=== PATIENT | female | born 1935 | race Caucasian/White ===

== ENCOUNTER 2019-02-05 01:46 | Inpatient (IN) | payer MEDICARE, OTHER ==
[~2019-02-05] VITALS: Ht 157.5 cm; Wt 87.6 kg
[2019-02-05] MEDS ORDERED: morphine 4 MG/ML VIAL IV STA ×2 (01:51→02:47)
[2019-02-05] MEDS ORDERED: ONDANSETRON 4 MG INJ IV STA (01:51)
--- NOTE | 2019-02-05 02:37 | ERD ---
ER Documentation Chief Complaint Chief Complaint [id number],from home,slipped and fell, L hip pain HPI This 83-year-old female brought in by rescue from home with a slip and fall complains of left hip and left knee pain. Denies any fevers chills nausea vomiting. Pain is mild to moderate intensity no exacerbating alleviating factors. Denies any other current issues. ROS All systems reviewed and are negative except as per history of present illness. Allergies Allergies: Coded Allergies: No Known Allergy (Unverified , 02/05/19) PMhx/Soc History of Surgery: Yes (BILAT KNEE SX, ABDOMINAL SX) Anesthesia Reaction: No Hx Neurological Disorder: No Hx Respiratory Disorders: No Hx Cardiac Disorders: Yes (HTN) Hx Psychiatric Problems: No Hx Miscellaneous Medical Probl: No Hx Alcohol Use: No Hx Substance Use: No Hx Tobacco Use: No Smoking Status: Never smoker Physical Exam Vitals Vital Signs Date Temp Pulse Resp B/P (MAP) Pulse Ox O2 O2 Flow FiO2 Time Delivery Rate 02/05/19 97.3 66 19 122/75 98 01:54 (91) Physical Exam Const: No acute distress Head: Atraumatic Eyes: Normal Conjunctiva ENT: Normal External Ears, Nose and Mouth. Neck: Full range of motion. No meningismus. Resp: Clear to auscultation bilaterally Cardio: Regular rate and rhythm, no murmurs Abd: Soft, non tender, non distended. Normal bowel sounds Skin: No petechiae or rashes Back: No midline or flank tenderness Ext: No cyanosis, or edema Neur: Awake and alert Psych: Normal Mood and Affect Result Diagram: 02/05/19 0206 Results 24 hrs Laboratory Tests Test 02/05/19 02:06 White Blood Count 6.9 10^3/ul Red Blood Count 4.16 10^6/ul Hemoglobin 12.1 g/dl Hematocrit 38.8 % Mean Corpuscular Volume 93.3 fl Mean Corpuscular Hemoglobin 29.1 pg Mean Corpuscular Hemoglobin Concent 31.2 g/dl Red Cell Distribution Width 13.8 % Platelet Count 256 10^3/UL Mean Platelet Volume 9.5 fl Immature Granulocytes % 0.400 % Neutrophils % 64.0 % Lymphocytes % 23.7 % Monocytes % 7.8 % Eosinophils % 3.5 % Basophils % 0.6 % Nucleated Red Blood Cells % 0.0 /100WBC Immature Granulocytes # 0.030 10^3/ul Neutrophils # 4.4 10^3/ul Lymphocytes # 1.6 10^3/ul Monocytes # 0.5 10^3/ul Eosinophils # 0.2 10^3/ul Basophils # 0.0 10^3/ul Nucleated Red Blood Cells # 0.0 10^3/ul Prothrombin Time 12.4 Sec Prothrombin Time Ratio 1.0 INR International Normalized Ratio 0.91 Activated Partial Thromboplast Time 22.6 Sec Current Medications Medications Dose Sig/Astrid Start Time Status Last (Trade) Ordered Route PRN Stop Time Admin Dose Reason Admin Morphine 4 mg ONCE STAT 02/05/19 DC 02/05/19 Sulfate IV 01:51 02:04 (morphine) 02/05/19 01:52 Ondansetron 4 mg ONCE STAT 02/05/19 DC 02/05/19 HCl (Zofran IV 01:51 02:04 Inj) 02/05/19 01:52 Procedures/MDM X-ray Knee 3V Interpreted by me: Bones: Comminuted distal fibular fracture with multiple pieces Joints: [No dislocation] Foreign body: [None] X-ray Hip 2V Interpreted by me: Bones: [No fracture] Joints: [No dislocation] Foreign body: [None] Medical decision making: Patient has a essentially shattered distal femur. Patient will be admitted to hospitalist with orthopedic consultation. Departure Diagnosis: Primary Impression: Femur fracture Encounter type: initial encounter Femur location: unspecified portion of femur Fracture type: closed Fracture morphology: unspecified fracture morphology Laterality: left Qualified Codes: S72.92XA - Unspecified fra cture of left femur, initial encounter for closed fracture Condition: Serious ROXANA MCDONALD Feb 05, 2019 02:37
[2019-02-05] MEDS: SOD CHLORIDE 0.9% 1,000 ML IV SCH ×3 (02:58→23:16)
[2019-02-05] MEDS ORDERED: ONDANSETRON 4 MG INJ IV PRN ×2 (03:00)
[2019-02-05] MEDS ORDERED: NACL 0.9% 3 ML SYG IV SCH (03:00)
[2019-02-05] MEDS ORDERED: ACETAMINOPHEN 325 MG TAB PO PRN ×2 (03:00)
[2019-02-05] MEDS ORDERED: BISACODYL (EC) 5 MG TAB PO PRN (03:00)
[2019-02-05] MEDS ORDERED: DOCUSATE SODIUM 100 MG CAP PO PRN (03:00)
[2019-02-05] MEDS ORDERED: morphine 2 MG INJ IV PRN (03:00)
--- NOTE | 2019-02-05 03:50 | HP ---
Date/Time of Note Date/Time of Note DATE: 02/05/19 TIME: 03:41 Assessment/Plan VTE Prophylaxis SCD applied (from Nsg): Yes (Right lower extremity) Pharmacological prophylaxis: NA/contraindicated Pharm contraindication: low risk/ambulating Lines/Catheters IV Catheter Type (from Nrsg): Saline Lock Assessment/Plan Hospital Course This is a 80-year-old female being admitted to the [facility] floor for: #1 acute left femur fracture: Comminuted distal femoral periprosthetic fracture with approximately 2.5 cm of posterior medial displacement. Patient had knee replacements in 1998. We will keep patient n.p.o. except meds. IV fluid hydration with normal saline. Pain management. Given mechanism of injury as well as previous knee replacement hardware in place will also proceed with a CT of the pelvis as well as the lower extremity to further evaluate. Dr. Austin of orthopedic surgery has been consulted by the emergency department. Will await further recommendations. EKG and CXR ordered for preop. Cardiac consult for clearance dr. rios. #2 Left ankle pain: There is also concern for possible fracture. I will obtain a CT of the lower extremity to further evaluate as she was unable to have the x- rays performed given her pain. #3 diabetes mellitus we will check hemoglobin A 1C, insulin sliding scale q. the patient n.p.o., will need to confirm patient's home meds #4 hypertension: We will need to confirm patient's home medications and resume #5 hypothyroidism: Check TSH, will need to confirm patient's home levothyroxine dosing resume #6 DVT GI prophylaxis: Right lower extremity SCDs, no GI prophylaxis indicated Further treatment strategy will be implemented as per the clinical course Result Diagram: 02/05/19 0206 02/05/19 0206 Results 24hrs Laboratory Tests Test 02/05/19 02:06 White Blood Count 6.9 Red Blood Count 4.16 L Hemoglobin 12.1 Hematocrit 38.8 Mean Corpuscular Volume 93.3 Mean Corpuscular Hemoglobin 29.1 Mean Corpuscular Hemoglobin Concent 31.2 L Red Cell Distribution Width 13.8 Platelet Count 256 Mean Platelet Volume 9.5 Immature Granulocytes % 0.400 Neutrophils % 64.0 Lymphocytes % 23.7 Monocytes % 7.8 Eosinophils % 3.5 Basophils % 0.6 Nucleated Red Blood Cells % 0.0 Immature Granulocytes # 0.030 Neutrophils # 4.4 Lymphocytes # 1.6 Monocytes # 0.5 Eosinophils # 0.2 Basophils # 0.0 Nucleated Red Blood Cells # 0.0 Prothrombin Time 12.4 Prothrombin Time Ratio 1.0 INR International Normalized Ratio 0.91 Activated Partial Thromboplast Time 22.6 L Sodium Level 143 Potassium Level 4.5 Chloride Level 107 Carbon Dioxide Level 27 Anion Gap 9 Blood Urea Nitrogen 23 H Creatinine 1.04 H Est Glomerular Filtrat Rate mL/min Glucose Level 117 Calcium Level 9.7 Total Bilirubin 0.4 Direct Bilirubin 0.00 Indirect Bilirubin 0.4 Aspartate Amino Transf (AST/SGOT) 17 Alanine Aminotransferase (ALT/SGPT) 13 Alkaline Phosphatase 61 Total Protein 7.6 Albumin 4.1 Globulin 3.50 H Albumin/Globulin Ratio 1.17 Lipase 311 H HPI/ROS Admit Date/Time Admit Date/Time Hx of Present Illness Chief complaint: Fall, left leg pain this is a 83-year-old female with a past medical history of diabetes mellitus, hypertension, Breast CA and hypothyroidism who presents to the emergency department after she sustained a fall. She states that she was walking to the bathroom and she slipped on the floor. Part of the floor was carpeted and part of it was hard floor. She denies any loss of consciousness or syncope. Since falling her left lower extremity is really painful more so at the knee. Her family members present with her at the bedside and states that she has not really been moving the leg due to pain. She has a history of bilateral knee replacements in 1998 performed at [facility]. She denies any chest pain or shortness of breath. Patient is a independent female who is able to walk up and down stairs without any chest pain or shortness of breath. She has not had any previous issues with anesthesia in the past. Patient also reports of left ankle pain. Allergies: NKDA Medications: See OCT ROS Const: As per HPI Eyes : No pain discharge or redness or change in visual acuity ENT: No pain, sore throat, congestion, congestion, dysphagia or discharge Respiratory: No shortness of breath, cough, sputum, wheezing, or pleuritic pain Cardiovascular: No chest pain, palpitation, PND, or edema GI : no change in appetite, abdominal pain, nausea, vomiting, diarrhea, constipation, or change in the color his stool Genitourinary: No dysuria, hematuria, flank pain , discharge or CVA tenderness Musculoskeletal: As per HPI Skin: No rash, bruising or hives Neuro: No headache, dizziness, syncope, seizure, focal weakness Endocrine: No polyuria, polydipsia, temperature intolerance Psych: No hallucination, depression, anxiety or suicidal ideation PMH/Family/Social Past Medical History Diabetes mellitus, hypertension, breast cancer, hypothyroidism Medications Current Medications Sodium Chloride 1,000 ml @ 80 mls/hr [id number] IV Last administered on 02/05/19at 02:58; Admin Dose 80 MLS/HR; Start 02/05/19 at 02:41 IV Flush (NS 3 ml) 3 ml PER PROTOCOL IV ; Start 02/05/19 at 03:00 Ondansetron HCl (Zofran Inj) 4 mg Q6H PRN IV NAUSEA/VOMITING; Start 02/05/19 at 03:00 Acetaminophen (Tylenol Tab) 650 mg Q6H PRN PO .PAIN 1-3 OR TEMP; Start 02/05/19 at 03:00 Acetaminophen/ Hydrocodone Bitart ([place] (5/325)) 1 tab Q6H PRN PO .MOD PAIN 4- 6; Start 02/05/19 at 03:00 Docusate Sodium (Colace) 100 mg Q12H PRN PO .CONSTIPATION; Start 02/05/19 at 03:00 Bisacodyl (Dulcolax) 5 mg DAILY PRN PO .CONSTIPATION; Start 02/05/19 at 03:00 Hydromorphone HCl (Dilaudid) 1 mg Q4H PRN IV SEVERE PAIN LEVEL 7-10; Start 02/05/19 at 04:00; Status UNV Coded Allergies: No Known Allergy (Unverified , 02/05/19) Past Surgical History Left breast mastectomy, cholecystectomy, bladder surgery, Family History Significant Family History: no pertinent family hx Social History Alcohol Use: none Smoking Status: Never smoker Drug Use: none Exam/Review of Systems Vital Signs Vitals Vital Signs Date Temp Pulse Resp B/P (MAP) Pulse Ox O2 O2 Flow FiO2 Time Delivery Rate 02/05/19 97.3 66 19 122/75 98 01:54 (91) Exam Exam General: Patient is a pleasant female, currently lying in bed in moderate distress from pain HEENT: Atraumatic, normocephalic. The pupils are equal, round and reactive. Extraocular motor are intact Neck: Supple with full range of motion. No rigidity or meningismus Chest: Nontender Lungs: Clear to auscultation bilaterally no crackles rales or wheezing Heart: Normal S1-S2, Regular rhythm and rate. No murmur, S3, or S4 Abdomen: Soft , nontender, nondistended , bowel sounds are present. No guarding no rebound tenderness , No masses or organomegaly. No costovertebral temporal angle mass Extremities: left lower extremity is externally rotated, patient has tenderness palpation over the knee and the ankle. She denies pain at the hip. She has been not moving the extremity due to pain. Skin: Bilateral surgical scars of the knees Vascular: Neurovascularly intact, distal pulses 2+ bilaterally Neurologic: Normal mental status, speech normal, cranial nerves II through XII are intact, motor and sensory are intact, Additional Comments PROCEDURE: X-ray left knee. CLINICAL INDICATION: Pain. Fall. TECHNIQUE: VIEWS: 2 IMAGES: 2 COMPARISON: None. FINDINGS: OSSEOUS STRUCTURES Fractures: Total knee arthroplasty is present with comminuted periprosthetic fracture involving the distal femur. There is up to 2.5 cm of posteromedial displacement of the distal fragments/femoral condyles and prosthesis. SOFT TISSUES: Moderate atherosclerotic calcifications are present. IMPRESSION: 1. Comminuted distal femoral periprosthetic fracture with approximately 2.5 cm of posterior medial displacement. RPTAT:HGST Ricky Coelho Physician Date Time Electronically viewed and signed by Ricky Coelho, Physician on 02/05/2019 03:15 GT/ CC: ROXANA MCDONALD [id number] PROCEDURE: XR Hip Left 2 View (Routine) CLINICAL INDICATION: Pain. Fall. TECHNIQUE: VIEWS: 2 IMAGES: 2 COMPARISON: None. FINDINGS: OSSEOUS STRUCTURES Fractures: None. JOINTS: Spaces: Appear preserved. Mild osteitis pubis is suggested. IMPRESSION: 1. No acute osseous abnormalities. RPTAT:HGST Ricky Coelho, Physician Date Time Electronically viewed and signed by Ricky Coelho Physician on 02/05/2019 03:16 GT/ CC: ROXANA MCDONALD [id number] PROCEDURE: XR Chest. CLINICAL INDICATION: Preoperative assessment prior to general anesthesia. Left femur fracture. TECHNIQUE: Portable single view of the chest COMPARISON: None. FINDINGS: The lungs are free of focal infiltrate. Minimal into density adjacent the cardiac apex suggesting atelectasis or scarring. There is no pleural effusion or pneumothorax. Mild enlargement of cardiomediastinal silhouette, likely accentuated by portable AP technique, including mild cardiomegaly, ectasia and atherosclerotic calcification of the aorta. Surgical clips are seen overlying the left chest and axilla. The bones are demineralized with multilevel degenerative changes. No acute displaced fracture is seen. IMPRESSION: No definite acute process seen within the chest. Mild cardiomegaly. Ectasia and atherosclerotic calcification of the aorta. Postsurgical changes. RPTAT: HSAF Antolin Griffith, Physician Date Time Electronically viewed and signed by Antolin Griffith Physician on 02/05/2019 06:40 RF/ CC: SYLVIE ARMAS [id number] SYLVIE ARMAS Feb 05, 2019 03:50
[2019-02-05 04:00] VITALS: Ht 157.5 cm; Wt 87.6 kg
[2019-02-05 05:00] VITALS: BP 147/87; PULSE 65; RESP 20
[2019-02-05] MEDS ORDERED: INSULIN ASPART [NOVOLOG] 3 ML PEN SC SCH (05:00)
[2019-02-05] MEDS ORDERED: DEXTROSE 50% 50 ML SYRINGE IV PRN ×2 (05:00)
[2019-02-05] MEDS ORDERED: GLUCOSE GEL 15 GRAM TUBE PO PRN ×2 (05:00)
[2019-02-05] MEDS ORDERED: GLUCAGON 1 MG INJ IM PRN (05:00)
[2019-02-05] MEDS ORDERED: GLUCOSE GEL 15 GRAM TUBE BUCCAL PRN (05:00)
[2019-02-05] MEDS: HYDROmorphONE 1 MG/ML SYG IV PRN ×6 (05:17→23:15)
[2019-02-05] MEDS ORDERED: METF500T24 PO (06:02)
[2019-02-05] MEDS ORDERED: BRIM15DR2 BOTH EYES (06:02)
[2019-02-05] MEDS ORDERED: NATE60TA PO (06:02)
[2019-02-05] MEDS ORDERED: ESOM40CA PO (06:02)
[2019-02-05] MEDS ORDERED: OLME40TA13 PO (06:02)
[2019-02-05] MEDS ORDERED: LATA2.5D2 BOTH EYES (06:02)
[2019-02-05] MEDS ORDERED: FLUT1BLS3 IH (06:02)
[2019-02-05 07:21] VITALS: PULSE 76; RESP 18
[2019-02-05] MEDS: HYDROCODONE/APAP (5/325) TAB PO PRN ×4 (08:09→23:18)
[2019-02-05] MEDS: INSULIN ASPART [NOVOLOG] 3 ML PEN SC SCH ×4 (09:00→21:00)
--- NOTE | 2019-02-05 16:01 | RADRPT ---
Echocardiogram Report Patient Name: ROBERTO WHYTEPatient ID: [id number] : 1935 (83y 6m)Study Date: 02/05/2019 8:58:46 AM Gender: FAccession #: [id number] Tech: Niels Ricks [facility] Location: [address] Ref.Physician: SYLVIE ARMAS Height(Cm): BSA: Weight(Kg): Quality: AdequateOrder Physician: SYLVIE ARMAS Account #: Procedures: Echocardiographic Report: Transthoracic echocardiogram with complete 2D, M-Mode, and doppler examination. Indications: Pre-op. Measurements: 2D/M Mode Doppler Measurement Value Normal Range Measurement Value Normal Range LVIDd 2D 4.6 [ 3.8 - 5.2 ] cm AV Peak Wilbert 1.5 [ 100.0 - 170.0 ] cm/sec LVIDs 2D 3.2 [ 2.2 - 3.5 ] cm AV Peak PG 9.0 [ 2.0 - 9.0 ] mmHg LVPWd 2D 1.0 [ 0.6 - 0.9 ] cm LVOT Peak Wilbert 1.1 [ 70.0 - 110.0 ] cm/sec IVSd 2D 1.2 [ 0.6 - 0.9 ] cm LVOT Peak PG 4.0 [ 2.0 - 6.0 ] mmHg AoR Diam 2D 2.7 [ 2.3 - 3.1 ] cm MV E Peak Wilbert 0.5 [ 60.0 - 130.0 ] cm/sec EDV 2D 94.9 [ 46.0 - 106.0 ] ml MV A Peak Wilbert 0.8 [ 100.0 - 120.0 ] cm/sec ESV 2D 40.6 [ 14.0 - 42.0 ] ml MV E/A 0.7 [ 0.8 - 1.5 ] ratio EF 2D 57.2 [ 54.0 - 74.0 ] percent MV Decel Time 243 [ 104 - 258 ] msec LA Dimen 2D 2.9 [ 2.7 - 3.8 ] cm Lat E` Wilbert 0.1 [ 10.0 - 15.0 ] cm/sec Lateral E/E` 8.1 [ 1.0 - 2.0 ] ratio Med E` Wilbert 0.1 cm/sec MV E/A 0.7 [ 0.8 - 1.5 ] ratio RA Pressure 10.0 mmHg Findings: Left Ventricle: Overall, normal left ventricular systolic function. Not all segments visualized. Normal left ventricular cavity size. Left ventricle not well visualized. Sigmoid septum. Ejection fraction is visually estimated at 65 %. Tissue Doppler/Mitral Doppler indices are consistent with impaired relaxation (Stage I diastolic dysfunction). Right Ventricle: Normal right ventricular size. Normal right ventricular systolic function. Left Atrium: The left atrium is normal in size. Right Atrium: The right atrium is normal in size. Mitral Valve: Mild mitral leaflet calcification. Mild mitral annular calcification. Aortic Valve: No significant aortic stenosis or insufficiency. Aortic valve not well visualized. Aortic cusps appear mildly calcified. Tricuspid Valve: Normal appearance of the tricuspid valve. Unable to obtain RVSP due to minimal presence of tricuspid regurgitation. Pericardium: Normal pericardium with no significant pericardial effusion. Left pleural effusion seen. Aorta: Normal aortic root. IVC: Normal size and normal respiratory collapse consistent with normal right atrial pressure. Conclusions: Overall, normal left ventricular systolic function. Not all segments visualized. Normal left ventricular cavity size. Left ventricle not well visualized. Sigmoid septum. Ejection fraction is visually estimated at 65 %. Tissue Doppler/Mitral Doppler indices are consistent with impaired relaxation (Stage I diastolic dysfunction). Mild mitral leaflet calcification. Mild mitral annular calcification. No significant aortic stenosis or insufficiency. Aortic valve not well visualized. Aortic cusps appear mildly calcified. Normal appearance of the tricuspid valve. Unable to obtain RVSP due to minimal presence of tricuspid regurgitation. Electronically Signed By: Louie Queen 2019-02-05 16:01:19 PDT
--- NOTE | 2019-02-05 16:10 | PN ---
Date/Time of Note Date/Time of Note DATE: 02/05/19 TIME: 16:04 Assessment/Plan VTE Prophylaxis Risk score (from Ns)>0 risk: 8 SCD applied (from Ns): Yes Pharmacological prophylaxis: NA/contraindicated Pharm contraindication: surgical contra Lines/Catheters IV Catheter Type (from Nrsg): Peripheral IV Urinary Cath still in place: No Assessment/Plan Hospital Course 1. Acute left distal femur fracture as well as ankle fracture secondary to fall CT of the lower extremity shows Comminuted and displaced distal femoral periprosthetic fracture, as seen on earlier radiographs, with associated soft tissue swelling including inferiorly within the posterior compartment. Trimalleolar ankle fracture without associated dislocation. Nondisplaced fracture of the first proximal phalanx which extends to the MTP joint. Pain control Ortho consult with Dr. Austin obtained Cardiology consultation for preop evaluation 2. History of left knee replacement 3. Diabetes mellitus we will check hemoglobin A 1C, insulin sliding scale q. the patient n.p.o., will need to confirm patient's home meds 4. Hypertension Hold home meds secondary to low to normal blood pressure 5. Hypothyroidism: Check TSH, will need to confirm patient's home levothyroxine dosing resume 6. Morbid obesity Lifestyle changes DVT GI prophylaxis: Right lower extremity SCDs, no GI prophylaxis indicated Result Diagram: 02/05/19 0550 02/05/19 0550 Results 24hrs Laboratory Tests Test 02/05/19 02:06 02/05/19 05:50 02/05/19 09:25 02/05/19 13:15 White Blood Count 6.9 10.5 # Red Blood Count 4.16 L 3.75 L Hemoglobin 12.1 11.0 L Hematocrit 38.8 34.9 L Mean Corpuscular 93.3 93.1 Volume Mean Corpuscular 29.1 29.3 Hemoglobin Mean Corpuscular 31.2 L 31.5 L Hemoglobin Concent Red Cell 13.8 13.6 Distribution Width Platelet Count 256 231 Mean Platelet Volume 9.5 10.0 Immature 0.400 0.400 Granulocytes % Neutrophils % 64.0 79.5 H Lymphocytes % 23.7 11.9 L Monocytes % 7.8 6.4 Eosinophils % 3.5 1.5 Basophils % 0.6 0.3 Nucleated Red Blood 0.0 0.0 Cells % Immature 0.030 0.040 H Granulocytes # Neutrophils # 4.4 8.3 H Lymphocytes # 1.6 1.2 Monocytes # 0.5 0.7 Eosinophils # 0.2 0.2 Basophils # 0.0 0.0 Nucleated Red Blood 0.0 0.0 Cells # Prothrombin Time 12.4 Prothrombin Time 1.0 Ratio INR International 0.91 Normalized Ratio Activated 22.6 L Partial Thromboplast Time Sodium Level 143 140 Potassium Level 4.5 4.8 Chloride Level 107 107 Carbon Dioxide Level 27 25 Anion Gap 9 8 Blood Urea Nitrogen 23 H 22 H Creatinine 1.04 H 0.98 Est Glomerular Filtrat Rate mL/min Glucose Level 117 124 Calcium Level 9.7 9.4 Total Bilirubin 0.4 0.4 Direct Bilirubin 0.00 0.00 Indirect Bilirubin 0.4 0.4 Aspartate Amino 17 18 Transf (AST/SGOT) Alanine 13 11 L Aminotransferase (AL T/SGPT) Alkaline Phosphatase 61 56 Total Protein 7.6 6.7 Albumin 4.1 3.8 Globulin 3.50 H 2.90 Albumin/Globulin 1.17 1.31 Ratio Lipase 311 H Bedside Glucose 117 94 Subjective 24 Hr Interval Summary Musculoskeletal: bone/joint pain Exam/Review of Systems Exam Vitals Vital Signs Date Temp Pulse Resp B/P (MAP) Pulse Ox O2 O2 Flow FiO2 Time Delivery Rate 02/05/19 98.9 76 18 94 Room Air 07:21 Intake and Output 02/04/19 02/04/19 02/05/19 1515:00 23:00 07:00 IntakeIntake Total 320 ml OutputOutput Total 150 ml BalanceBalance 170 ml Constitutional: alert, oriented Respiratory: clear to auscultation Cardiovascular: regular rate and rhythm Gastrointestinal: soft; No distended Musculoskeletal: nl extremities to inspection Results Results 24hrs Laboratory Tests Test 02/05/19 02:06 02/05/19 05:50 02/05/19 09:25 02/05/19 13:15 White Blood Count 6.9 10.5 # Red Blood Count 4.16 L 3.75 L Hemoglobin 12.1 11.0 L Hematocrit 38.8 34.9 L Mean Corpuscular 93.3 93.1 Volume Mean Corpuscular 29.1 29.3 Hemoglobin Mean Corpuscular 31.2 L 31.5 L Hemoglobin Concent Red Cell 13.8 13.6 Distribution Width Platelet Count 256 231 Mean Platelet Volume 9.5 10.0 Immature 0.400 0.400 Granulocytes % Neutrophils % 64.0 79.5 H Lymphocytes % 23.7 11.9 L Monocytes % 7.8 6.4 Eosinophils % 3.5 1.5 Basophils % 0.6 0.3 Nucleated Red Blood 0.0 0.0 Cells % Immature 0.030 0.040 H Granulocytes # Neutrophils # 4.4 8.3 H Lymphocytes # 1.6 1.2 Monocytes # 0.5 0.7 Eosinophils # 0.2 0.2 Basophils # 0.0 0.0 Nucleated Red Blood 0.0 0.0 Cells # Prothrombin Time 12.4 Prothrombin Time 1.0 Ratio INR International 0.91 Normalized Ratio Activated 22.6 L Partial Thromboplast Time Sodium Level 143 140 Potassium Level 4.5 4.8 Chloride Level 107 107 Carbon Dioxide Level 27 25 Anion Gap 9 8 Blood Urea Nitrogen 23 H 22 H Creatinine 1.04 H 0.98 Est Glomerular Filtrat Rate mL/min Glucose Level 117 124 Calcium Level 9.7 9.4 Total Bilirubin 0.4 0.4 Direct Bilirubin 0.00 0.00 Indirect Bilirubin 0.4 0.4 Aspartate Amino 17 18 Transf (AST/SGOT) Alanine 13 11 L Aminotransferase (AL T/SGPT) Alkaline Phosphatase 61 56 Total Protein 7.6 6.7 Albumin 4.1 3.8 Globulin 3.50 H 2.90 Albumin/Globulin 1.17 1.31 Ratio Lipase 311 H Bedside Glucose 117 94 Medications Medication Current Medications Sodium Chloride 1,000 ml @ 80 mls/hr [id number] IV Last administered on 02/05/19at 13:13; Admin Dose 80 MLS/HR; Start 02/05/19 at 02:41 IV Flush (NS 3 ml) 3 ml PER PROTOCOL IV ; Start 02/05/19 at 03:00 Ondansetron HCl (Zofran Inj) 4 mg Q6H PRN IV NAUSEA/VOMITING; Start 02/05/19 at 03:00 Acetaminophen (Tylenol Tab) 650 mg Q6H PRN PO .PAIN 1-3 OR TEMP; Start 02/05/19 at 03:00 Acetaminophen/ Hydrocodone Bitart ([place] (5/325)) 1 tab Q6H PRN PO .MOD PAIN 4- 6 Last administered on 02/05/19at 15:02; Admin Dose 1 TAB; Start 02/05/19 at 03:00 Docusate Sodium (Colace) 100 mg Q12H PRN PO .CONSTIPATION; Start 02/05/19 at 03:00 Bisacodyl (Dulcolax) 5 mg DAILY PRN PO .CONSTIPATION; Start 02/05/19 at 03:00 Hydromorphone HCl (Dilaudid) 1 mg Q4H PRN IV SEVERE PAIN LEVEL 7-10 Last administered on 02/05/19at 13:13; Admin Dose 1 MG; Start 02/05/19 at 04:00 Miscellaneous Information 1 ea NOTE XX ; Start 02/05/19 at 05:00 Glucose (Glutose) 15 gm Q15M PRN PO DECREASED GLUCOSE; Start 02/05/19 at 05:00 Glucose (Glutose) 22.5 gm Q15M PRN PO DECREASED GLUCOSE; Start 02/05/19 at 05:00 Dextrose (D50w Syringe) 25 ml Q15M PRN IV DECREASED GLUCOSE; Start 02/05/19 at 05:00 Dextrose (D50w Syringe) 50 ml Q15M PRN IV DECREASED GLUCOSE; Start 02/05/19 at 05:00 Glucagon (Glucagen) 1 mg Q15M PRN IM DECREASED GLUCOSE; Start 02/05/19 at 05:00 Glucose (Glutose) 15 gm Q15M PRN BUCCAL DECREASED GLUCOSE; Start 02/05/19 at 0 5:00 Diagnostic Test (Pha) (Accu-Chek) 1 ea 02 XX ; Start 02/06/19 at 02:00 Insulin Aspart (Novolog Insulin Pen) NOVOLOG *MILD* ALGORITHM WITH MEALS BEDTIME SC ; Start 02/05/19 at 17:55 KATELYN CALDWELL Feb 05, 2019 16:10
--- NOTE | 2019-02-05 16:24 | CONS ---
Assessment/Plan Assessment/Plan Hospital Course (Demo Recall) 1. Cardiovascular preop evaluation 2. Diabetes B. Femoral fraction 4. Hypertension 5. History of osteoarthritis Recommendations: Diabetic management as per internal medicine Blood pressure currently remains stable Patient is currently optimized from the cardiac extent with no anginal symptoms and no further cardiac work-up would be indicated. Given her multiple risk factors including diabetes and advanced and she will be a small to moderate risk of cardiovascular event for the proposed procedure however Thank you for this referral. We will continue to follow along with you PUMA THOMPSON MD [facility] Consultation Date/Type/Reason Admit Date/Time Date of Consultation: Feb 05, 2019 Type of Consult Cardiology Reason for Consultation CV PREOP Requesting Provider: SYLVIE ARMAS Date/Time of Note DATE: 02/05/19 TIME: 16:18 Hx of Present Illness Interventional cardiology consultation note Chief complaint: Status post fall. Left hip and leg pain Reason for consult: Cardiovascular preop evaluation History of present illness: Thank you for this referral. History was obtained from the patient discussion with her daughter review of the chart discussion with the staff and physicians. This is a pleasant 83-year-old female with history of diabetes hypertension who presented to emergency room after a fall. Patient stated she did not pass out. She slipped and she fell and apparently has had femoral fraction and is being evaluated by orthopedic surgery for hip surgery. I was kindly asked to evaluate and optimize prior to the proposed surgery. Patient and the daughter deny any history of cardiac disorders. Patient denies any history of chest pain or pressure. According to the patient and the daughter she is normally able to walk more than 2 blocks but she walks slowly and has no anginal chest pain when she walks. She denies any PND orthopnea to me. She denies letter chest pain or pressure to me. She denies any history of previous cardiac or anesthesia complication with her previous surgery Allergies: No known drug allergies Medications were reviewed as per medical reconciliation sheet Family history: Patient has a brother with coronary arteries and [place] in his 50s Social history: Does not smoke or drink Past medical history: Diabetes hypertension dyslipidemia osteoarthritis. Status post knee surgery in 1998 Review of system: Patient denies all others except for above-mentioned Past Medical History Home Meds Reported Medications Metformin Hcl* (Metformin Hcl*) 500 Mg Tablet, 500 MG PO WITH BREAKFAST DINNE, #60 TAB 02/05/19 Esomeprazole Mag Trihydrate (Nexium) 40 Mg Capsule.dr, 40 MG PO DAILY, #30 CAP 02/05/19 Nateglinide* (Nateglinide*) 60 Mg Tablet, 60 MG PO AC MEALS, TAB 02/05/19 Olmesartan Medoxomil (Benicar) 40 Mg Tablet, 40 MG PO DAILY, #30 TAB 02/05/19 Fluticasone/Umeclidin/Vilanter (Trelegy Ellipta 100-62.5-25) 1 Each Blst.w.dev, 1 EACH IH 02/05/19 Latanoprost (Latanoprost) 2.5 Ml Drops, 1 DROP BOTH EYES QHS, #1 BOTTLE 02/05/19 Brimonidine Tartrate* (Alphagan P*) 0.1%-15 Ml Opht Drops, 1 DROP BOTH EYES Q8, #1 EA 02/05/19 Medications Current Medications Sodium Chloride 1,000 ml @ 80 mls/hr [id number] IV Last administered on 02/05/19at 13:13; Admin Dose 80 MLS/HR; Start 02/05/19 at 02:41 IV Flush (NS 3 ml) 3 ml PER PROTOCOL IV ; Start 02/05/19 at 03:00 Ondansetron HCl (Zofran Inj) 4 mg Q6H PRN IV NAUSEA/VOMITING; Start 02/05/19 at 03:00 Acetaminophen (Tylenol Tab) 650 mg Q6H PRN PO .PAIN 1-3 OR TEMP; Start 02/05/19 at 03:00 Acetaminophen/ Hydrocodone Bitart ([place] (5/325)) 1 tab Q6H PRN PO .MOD PAIN 4- 6 Last administered on 02/05/19at 15:02; Admin Dose 1 TAB; Start 02/05/19 at 03:00 Docusate Sodium (Colace) 100 mg Q12H PRN PO .CONSTIPATION; Start 02/05/19 at 03:00 Bisacodyl (Dulcolax) 5 mg DAILY PRN PO .CONSTIPATION; Start 02/05/19 at 03:00 Hydromorphone HCl (Dilaudid) 1 mg Q4H PRN IV SEVERE PAIN LEVEL 7-10 Last administered on 02/05/19at 13:13; Admin Dose 1 MG; Start 02/05/19 at 04:00 Miscellaneous Information 1 ea NOTE XX ; Start 02/05/19 at 05:00 Glucose (Glutose) 15 gm Q15M PRN PO DECREASED GLUCOSE; Start 02/05/19 at 05:00 Glucose (Glutose) 22.5 gm Q15M PRN PO DECREASED GLUCOSE; Start 02/05/19 at 05:00 Dextrose (D50w Syringe) 25 ml Q15M PRN IV DECREASED GLUCOSE; Start 02/05/19 at 05:00 Dextrose (D50w Syringe) 50 ml Q15M PRN IV DECREASED GLUCOSE; Start 02/05/19 at 05:00 Glucagon (Glucagen) 1 mg Q15M PRN IM DECREASED GLUCOSE; Start 02/05/19 at 05:00 Glucose (Glutose) 15 gm Q15M PRN BUCCAL DECREASED GLUCOSE; Start 02/05/19 at 05:00 Diagnostic Test (Pha) (Accu-Chek) 1 ea 02 XX ; Start 02/06/19 at 02:00 Insulin Aspart (Novolog Insulin Pen) NOVOLOG *MILD* ALGORITHM WITH MEALS BEDTIME SC ; Start 02/05/19 at 17:55 Allergies: Coded Allergies: No Known Allergy (Unverified , 02/05/19) Social History Alcohol Use: none Smoking Status: Never smoker Drug Use: none Exam/Review of Systems Vital Signs Vitals Vital Signs Date Temp Pulse Resp B/P (MAP) Pulse Ox O2 O2 Flow FiO2 Time Delivery Rate 02/05/19 98.9 76 18 94 Room Air 07:21 Intake and Output 02/04/19 02/04/19 02/05/19 1515:00 23:00 07:00 IntakeIntake Total 320 ml OutputOutput Total 150 ml BalanceBalance 170 ml Exam Exam General: no acute distress HEENT: NC/AT. pupils are equal. round. NECK: NO JVD. no stridor. CV: RRR. systolic murmur; no gallop or rubs. PULM: no wheezing or rhonchi. GI: SOFT, NT, ND, no rebound or guarding Extremity: trace B/L LE edema. no clubbing. neuro: awake and alert, OX3. Psych: calm and pleasant rectal: deferred ECG NSR LAD ECHO reviewed Overall, normal left ventricular systolic function. Not all segments visualized. Normal left ventricular cavity size. Left ventricle not well visualized. Sigmoid septum. Ejection fraction is visually estimated at 65 %. Tissue Doppler/Mitral Doppler indices are consistent with impaired relaxation (Stage I diastolic dysfunction). Mild mitral leaflet calcification. Mild mitral annular calcification. No significant aortic stenosis or insufficiency. Aortic valve not well visualized. Aortic cusps appear mildly calcified. Normal appearance of the tricuspid valve. Unable to obtain RVSP due to minimal presence of tricuspid regurgitation. CXR No definite acute process seen within the chest. Mild cardiomegaly. Ectasia and atherosclerotic calcification of the aorta. Postsurgical change CT shows: Comminuted and displaced distal femoral periprosthetic fracture, as seen on earlier radiographs, with associated soft tissue swelling including inferiorly w ithin the posterior compartment. Trimalleolar ankle fracture without associated dislocation. Dedicated radiographs could be obtained for further assessment as clinically warranted. Nondisplaced fracture of the first proximal phalanx which extends to the MTP joint. Underlying osteopenia, and degenerative changes. Multifocal atherosclerotic calcifications. Labs Result Diagram: 02/05/19 0550 02/05/19 0550 Results 24hrs Laboratory Tests Test 02/05/19 02:06 02/05/19 05:50 02/05/19 09:25 02/05/19 13:15 White Blood Count 6.9 10.5 # Red Blood Count 4.16 L 3.75 L Hemoglobin 12.1 11.0 L Hematocrit 38.8 34.9 L Mean Corpuscular 93.3 93.1 Volume Mean Corpuscular 29.1 29.3 Hemoglobin Mean Corpuscular 31.2 L 31.5 L Hemoglobin Concent Red Cell 13.8 13.6 Distribution Width Platelet Count 256 231 Mean Platelet Volume 9.5 10.0 Immature 0.400 0.400 Granulocytes % Neutrophils % 64.0 79.5 H Lymphocytes % 23.7 11.9 L Monocytes % 7.8 6.4 Eosinophils % 3.5 1.5 Basophils % 0.6 0.3 Nucleated Red Blood 0.0 0.0 Cells % Immature 0.030 0.040 H Granulocytes # Neutrophils # 4.4 8.3 H Lymphocytes # 1.6 1.2 Monocytes # 0.5 0.7 Eosinophils # 0.2 0.2 Basophils # 0.0 0.0 Nucleated Red Blood 0.0 0.0 Cells # Prothrombin Time 12.4 Prothrombin Time 1.0 Ratio INR International 0.91 Normalized Ratio Activated 22.6 L Partial Thromboplast Time Sodium Level 143 140 Potassium Level 4.5 4.8 Chloride Level 107 107 Carbon Dioxide Level 27 25 Anion Gap 9 8 Blood Urea Nitrogen 23 H 22 H Creatinine 1.04 H 0.98 Est Glomerular Filtrat Rate mL/min Glucose Level 117 124 Calcium Level 9.7 9.4 Total Bilirubin 0.4 0.4 Direct Bilirubin 0.00 0.00 Indirect Bilirubin 0.4 0.4 Aspartate Amino 17 18 Transf (AST/SGOT) Alanine 13 11 L Aminotransferase (AL T/SGPT) Alkaline Phosphatase 61 56 Total Protein 7.6 6.7 Albumin 4.1 3.8 Globulin 3.50 H 2.90 Albumin/Globulin 1.17 1.31 Ratio Lipase 311 H Bedside Glucose 117 94 Medications Medications Current Medications Sodium Chloride 1,000 ml @ 80 mls/hr [id number] IV Last administered on 02/05/19at 13:13; Admin Dose 80 MLS/HR; Start 02/05/19 at 02:41 IV Flush (NS 3 ml) 3 ml PER PROTOCOL IV ; Start 02/05/19 at 03:00 Ondansetron HCl (Zofran Inj) 4 mg Q6H PRN IV NAUSEA/VOMITING; Start 02/05/19 at 03:00 Acetaminophen (Tylenol Tab) 650 mg Q6H PRN PO .PAIN 1-3 OR TEMP; Start 02/05/19 at 03:00 Acetaminophen/ Hydrocodone Bitart ([place] (5/325)) 1 tab Q6H PRN PO .MOD PAIN 4- 6 Last administered on 02/05/19at 15:02; Admin Dose 1 TAB; Start 02/05/19 at 03:00 Docusate Sodium (Colace) 100 mg Q12H PRN PO .CONSTIPATION; Start 02/05/19 at 03:00 Bisacodyl (Dulcolax) 5 mg DAILY PRN PO .CONSTIPATION; Start 02/05/19 at 03:00 Hydromorphone HCl (Dilaudid) 1 mg Q4H PRN IV SEVERE PAIN LEVEL 7-10 Last administered on 02/05/19at 13:13; Admin Dose 1 MG; Start 02/05/19 at 04:00 Miscellaneous Information 1 ea NOTE XX ; Start 02/05/19 at 05:00 Glucose (Glutose) 15 gm Q15M PRN PO DECREASED GLUCOSE; Start 02/05/19 at 05:00 Glucose (Glutose) 22.5 gm Q15M PRN PO DECREASED GLUCOSE; Start 02/05/19 at 05:00 Dextrose (D50w Syringe) 25 ml Q15M PRN IV DECREASED GLUCOSE; Start 02/05/19 at 05:00 Dextrose (D50w Syringe) 50 ml Q15M PRN IV DECREASED GLUCOSE; Start 02/05/19 at 05:00 Glucagon (Glucagen) 1 mg Q15M PRN IM DECREASED GLUCOSE; Start 02/05/19 at 05:00 Glucose (Glutose) 15 gm Q15M PRN BUCCAL DECREASED GLUCOSE; Start 02/05/19 at 05:00 Diagnostic Test (Pha) (Accu-Chek) 1 ea 02 XX ; Start 02/06/19 at 02:00 Insulin Aspart (Novolog Insulin Pen) NOVOLOG *MILD* ALGORITHM WITH MEALS BEDTIME SC ; Start 02/05/19 at 17:55 PUMA THOMPSON MD Feb 05, 2019 16:24
[2019-02-05 20:00] VITALS: BP 140/70; PULSE 79; RESP 18
[2019-02-05] MEDS ORDERED: LORAZEPAM 2 MG INJ IV PRN (21:30)
--- NOTE | 2019-02-06 00:03 | QN ---
Documentation Comment Patient was seen and examined by orthopedic surgery Dr. Austin. Due to the complexity of the patient's periprosthetic fracture, the surgeon recommended that the patient would be transferred to a higher level of care for treatment. Please see Dr. Austin's note for further details. I did speak with the patient's PCP Dr.Siamak Tao regarding the patient's case. He graciously agreed to accept the patient under his care at [facility]. He stated that she would be appropriate for transfer in the a.m. I have contacted the nursing supervisor [employer] as well as the gearcase assembler to help coordinate transfer to higher level of care. SYLVIE ARMAS Feb 06, 2019 00:02
[2019-02-06] MEDS ORDERED: ACCU-CHEK XX SCH (02:00)
[2019-02-06] MEDS: ACCU-CHEK XX SCH (02:00)
[2019-02-06] MEDS: HYDROmorphONE 1 MG/ML SYG IV PRN ×2 (03:40→07:07)
[2019-02-06] MEDS: INSULIN ASPART [NOVOLOG] 3 ML PEN SC SCH ×4 (07:50→20:16)
--- NOTE | 2019-02-06 08:09 | CONS ---
DATE OF ADMISSION: 02/05/2019 DATE OF CONSULTATION: 02/05/2019 HISTORY OF PRESENT ILLNESS: The patient is an 83-year-old female who was admitted through the emerge ncy room on 02/05/2019, when she came to the emergency room complaining of painful swelling and defor mity and limit of motion involving her left knee. She was at home. She is usually ambulatory and sh e was walking at home when she slipped and fell, twisting her left lower extremity. Following the fa ll, she was not able to stand up or walk because of the severe pain and deformity involving her left knee. 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 She wanted to be transferred because her doctors, including primary care physician, are mainly in the [facility], which is a major trauma center; however, because of some administrative difficu lties, she was admitted to this facility. PHYSICAL EXAMINATION: My examination revealed an 83-year-old female with obvious extensive swelling and some valgus malalignment involving the left knee. Range of motion of the left knee cannot be bobo celia because of the obvious pain and discomfort. There were no signs of acute neurovascular compromis e involving the left lower extremity. IMAGING STUDIES: X-rays of the left knee revealed a periprosthetic fracture involving the distal end of the left femur. In addition, there are signs of loosening of the tibial component. PLAN: Because of the nature of the fractures, which is involving the junction between the distal fem ur and femoral component and because of the findings suggestive of tibial component loosening, she wi ll probably need revision total knee replacement of the right knee. She will probably need a transfe r to a major medical center where the orthopedic surgeon who is specializing in total joint replaceme nt is willing and able to carry out the revision total knee replacement. Dictated By: SALVADOR BUNCH MD IK/NTS Conf#: [id number] DID#: [id number] CC: SYLVIE ARMAS MD;*EndCC*
--- NOTE | 2019-02-06 08:27 | CONS ---
Consult Date/Type/Reason Admit Date/Time Feb 05, 2019 at 02:38 Initial Consult Date 02/05/19 Type of Consultation: cv Requesting Provider: SYLVIE ARMAS Date/Time of Note DATE: 02/06/19 TIME: 08:26 Subjective Interventional cardiology follow-up progress note Subjective Discussed with the staff discussed with patient daughter. Patient with no chest pain or pressure no palpitation She is still complains of severe left-sided leg pain. Ejective: General: Appears to be in pain. HEENT: NC/AT. pupils are equal. round. NECK: NO JVD. no stridor. CV: RRR. systolic murmur; no gallop or rubs. PULM: no wheezing or rhonchi. GI: SOFT, NT, ND, no rebound or guarding Extremity: trace B/L LE edema. no clubbing. neuro: awake and alert, OX3. Psych: calm and pleasant rectal: deferred ECG NSR LAD ECHO reviewed Overall, normal left ventricular systolic function. Not all segments visualized. Normal left ventricular cavity size. Left ventricle not well visualized. Sigmoid septum. Ejection fraction is visually estimated at 65 %. Tissue Doppler/Mitral Doppler indices are consistent with impaired relaxation (Stage I diastolic dysfunction). Mild mitral leaflet calcification. Mild mitral annular calcification. No significant aortic stenosis or insufficiency. Aortic valve not well visualized. Aortic cusps appear mildly calcified. Normal appearance of the tricuspid valve. Unable to obtain RVSP due to minimal presence of tricuspid regurgitation. CXR No definite acute process seen within the chest. Mild cardiomegaly. Ectasia and atherosclerotic calcification of the aorta. Postsurgical change CT shows: Comminuted and displaced distal femoral periprosthetic fracture, as seen on earlier radiographs, with associated soft tissue swelling including inferiorly within the posterior compartment. Trimalleolar ankle fracture without associated dislocation. Dedicated radiographs could be obtained for further assessment as clinically warranted. Nondisplaced fracture of the first proximal phalanx which extends to the MTP joint. Underlying osteopenia, and degenerative changes. Multifocal atherosclerotic calcifications. Objective Vitals Vital Signs Date Temp Pulse Resp B/P (MAP) Pulse Ox O2 O2 Flow FiO2 Time Delivery Rate 02/05/19 98.5 79 18 140/70 94 Room Air 20:00 (93) Intake and Output 02/05/19 02/05/19 02/06/19 1515:00 23:00 07:00 IntakeIntake Total 680 ml 320 ml 1760 ml BalanceBalance 680 ml 320 ml 1760 ml Results/Medications Result Diagram: 02/06/19 0439 02/06/19 0439 Results 24 hrs Laboratory Tests Test 02/05/19 09:25 02/05/19 13:15 02/05/19 17:38 02/05/19 20:05 Bedside Glucose 117 94 116 92 Test 02/06/19 04:39 White Blood Count 8.0 # Red Blood Count 3.47 L Hemoglobin 10.0 L Hematocrit 32.8 L Mean Corpuscular 94.5 Volume Mean Corpuscular 28.8 L Hemoglobin Mean Corpuscular 30.5 L Hemoglobin Concent Red Cell 13.9 Distribution Width Platelet Count 195 Mean Platelet Volume 10.2 Immature 0.500 H Granulocytes % Neutrophils % 68.1 Lymphocytes % 20.0 Monocytes % 9.1 Eosinophils % 2.1 Basophils % 0.2 Nucleated Red Blood 0.0 Cells % Immature 0.040 H Granulocytes # Neutrophils # 5.5 Lymphocytes # 1.6 Monocytes # 0.7 Eosinophils # 0.2 Basophils # 0.0 Nucleated Red Blood 0.0 Cells # Sodium Level 138 Potassium Level 4.4 Chloride Level 106 Carbon Dioxide Level 26 Anion Gap 6 Blood Urea Nitrogen 23 H Creatinine 1.14 H Est Glomerular Filtrat Rate mL/min Glucose Level 111 Calcium Level 8.6 Total Bilirubin 0.7 Direct Bilirubin 0.00 Indirect Bilirubin 0.7 Aspartate Amino 19 Transf (AST/SGOT) Alanine 14 Aminotransferase (AL T/SGPT) Alkaline Phosphatase 51 Total Protein 6.4 Albumin 3.6 Globulin 2.80 Albumin/Globulin 1.28 Ratio Triglycerides Level 135 Cholesterol Level 127 LDL Cholesterol, 60 Calculated HDL Cholesterol 40 Cholesterol/HDL 3.1 Ratio Thyroid Stimulating 3.190 Hormone (TSH) Home Meds Reported Medications Metformin Hcl* (Metformin Hcl*) 500 Mg Tablet, 500 MG PO WITH BREAKFAST DINNE, #60 TAB 02/05/19 Esomeprazole Mag Trihydrate (Nexium) 40 Mg Capsule.dr, 40 MG PO DAILY, #30 CAP 02/05/19 Nateglinide* (Nateglinide*) 60 Mg Tablet, 60 MG PO AC MEALS, TAB 02/05/19 Olmesartan Medoxomil (Benicar) 40 Mg Tablet, 40 MG PO DAILY, #30 TAB 02/05/19 Fluticasone/Umeclidin/Vilanter (Trelegy Ellipta 100-62.5-25) 1 Each Blst.w.dev, 1 EACH IH 02/05/19 Latanoprost (Latanoprost) 2.5 Ml Drops, 1 DROP BOTH EYES QHS, #1 BOTTLE 02/05/19 Brimonidine Tartrate* (Alphagan P*) 0.1%-15 Ml Opht Drops, 1 DROP BOTH EYES Q8, #1 EA 02/05/19 Medications Current Medications Sodium Chloride 1,000 ml @ 80 mls/hr [id number] IV Last administered on 02/05/19at 23:16; Admin Dose 80 MLS/HR; Start 02/05/19 at 02:41 IV Flush (NS 3 ml) 3 ml PER PROTOCOL IV ; Start 02/05/19 at 03:00 Ondansetron HCl (Zofran Inj) 4 mg Q6H PRN IV NAUSEA/VOMITING; Start 02/05/19 at 03:00 Acetaminophen (Tylenol Tab) 650 mg Q6H PRN PO .PAIN 1-3 OR TEMP; Start 02/05/19 at 03:00 Docusate Sodium (Colace) 100 mg Q12H PRN PO .CONSTIPATION; Start 02/05/19 at 03:00 Bisacodyl (Dulcolax) 5 mg DAILY PRN PO .CONSTIPATION; Start 02/05/19 at 03:00 Miscellaneous Information 1 ea NOTE XX ; Start 02/05/19 at 05:00 Glucose (Glutose) 15 gm Q15M PRN PO DECREASED GLUCOSE; Start 02/05/19 at 05:00 Glucose (Glutose) 22.5 gm Q15M PRN PO DECREASED GLUCOSE; Start 02/05/19 at 05:00 Dextrose (D50w Syringe) 25 ml Q15M PRN IV DECREASED GLUCOSE; Start 02/05/19 at 05:00 Dextrose (D50w Syringe) 50 ml Q15M PRN IV DECREASED GLUCOSE; Start 02/05/19 at 05:00 Glucagon (Glucagen) 1 mg Q15M PRN IM DECREASED GLUCOSE; Start 02/05/19 at 05:00 Glucose (Glutose) 15 gm Q15M PRN BUCCAL DECREASED GLUCOSE; Start 02/05/19 at 05:00 Diagnostic Test (Pha) (Accu-Chek) 1 ea 02 XX ; Start 02/06/19 at 02:00 Insulin Aspart (Novolog Insulin Pen) NOVOLOG *MILD* ALGORITHM WITH MEALS BEDTIME SC ; Start 02/05/19 at 17:55 Acetaminophen/ Hydrocodone Bitart ([place] (5/325)) 1 tab Q4H PRN PO .MOD PAIN 4- 6 Last administered on 02/05/19at 23:18; Admin Dose 1 TAB; Start 02/05/19 at 18:00 Hydromorphone HCl (Dilaudid) 1 mg Q3H PRN IV SEVERE PAIN LEVEL 7-10 Last administered on 02/06/19at 07:07; Admin Dose 1 MG; Start 02/05/19 at 18:00 Hydromorphone HCl (Dilaudid) 1 mg ONCE ONCE IV ; Start 02/06/19 at 08:30; Stop 02/06/19 at 08:31 Hydromorphone HCl (Dilaudid) 1.5 mg Q3H PRN IV SEVERE PAIN LEVEL 7-10; Start 02/06/19 at 08:30 Assessment/Plan Hospital Course (Demo Recall) 1. Cardiovascular preop evaluation 2. Diabetes B. Femoral fraction 4. Hypertension 5. History of osteoarthritis Recommendations: Diabetic management as per internal medicine Blood pressure currently remains stable Patient is currently optimized from the cardiac extent with no anginal symptoms and no further cardiac work-up would be indicated. Given her multiple risk factors including diabetes and advanced and she will be a small to moderate risk of cardiovascular event for the proposed procedure however. Obviously if the aorta surgery appears to be more expensive than expected and longer cardiovascular risk will be increased as well. But no further cardiac work-up would be warranted or beneficial for this patient. Awaiting transfer to higher level of care per Ortho recommendation. Thank you for this referral. We will continue to follow along with you PUMA THOMPSON MD [facility] PUMA THOMPSON MD Feb 06, 2019 08:27
[2019-02-06] MEDS ORDERED: HYDROmorphONE 1 MG/ML SYG IV ONE (08:30)
[2019-02-06 08:31] VITALS: BP 102/52; PULSE 73; RESP 18
[2019-02-06] MEDS: SOD CHLORIDE 0.9% 1,000 ML IV SCH (11:56)
[2019-02-06] MEDS: HYDROmorphONE 2 MG/ML SYG IV PRN ×4 (12:01→23:34)
[2019-02-06 14:52] VITALS: BP 119/57; PULSE 83; RESP 18
--- NOTE | 2019-02-06 15:01 | RADRPT ---
Vent Rate: 67 bpm RR Interval: 892 msec [place] Interval: 146 msec QRS Duration: 92 msec QT Interval: 422 msec QTC Interval: 447 msec P-R-T [place]: 50 - -74 - 53 degrees Sinus rhythm...normal P axis, V-rate 50- 99 Left anterior fascicular block...axis(240,-40), init forces inf Electronically Signed By: Sreedhar Del Valle
--- NOTE | 2019-02-06 17:36 | PN ---
Date/Time of Note Date/Time of Note DATE: 02/06/19 TIME: 17:34 Assessment/Plan VTE Prophylaxis Risk score (from Ns)>0 risk: 10 SCD applied (from Ns): Yes Pharmacological prophylaxis: NA/contraindicated Pharm contraindication: surgical contra Lines/Catheters IV Catheter Type (from Nrsg): Peripheral IV Urinary Cath still in place: No Assessment/Plan Hospital Course 1. Acute left distal femur fracture as well as ankle fracture secondary to fall CT of the lower extremity shows Comminuted and displaced distal femoral periprosthetic fracture, as seen on earlier radiographs, with associated soft tissue swelling including inferiorly within the posterior compartment. Trimalleolar ankle fracture without associated dislocation. Nondisplaced fracture of the first proximal phalanx which extends to the MTP joint. Pain control Ortho consult with Dr. Geovanna kang, patient requires higher level of care and case operator is making arrangements Cardiology consultation for preop evaluation 2. History of left knee replacement 3. Diabetes mellitus Sliding scale 4. Hypertension Hold home meds secondary to low to normal blood pressure 5. Hypothyroidism: Check TSH, will need to confirm patient's home levothyroxine dose 6. Morbid obesity Lifestyle changes DVT GI prophylaxis: Right lower extremity SCDs, no GI prophylaxis indicated DC planning: Awaiting transfer Result Diagram: 02/06/19 0439 02/06/19 0439 Results 24hrs Laboratory Tests Test 02/05/19 17:38 02/05/19 20:05 02/06/19 04:39 02/06/19 08:32 Bedside Glucose 116 92 104 White Blood Count 8.0 # Red Blood Count 3.47 L Hemoglobin 10.0 L Hematocrit 32.8 L Mean Corpuscular 94.5 Volume Mean Corpuscular 28.8 L Hemoglobin Mean Corpuscular 30.5 L Hemoglobin Concent Red Cell 13.9 Distribution Width Platelet Count 195 Mean Platelet Volume 10.2 Immature 0.500 H Granulocytes % Neutrophils % 68.1 Lymphocytes % 20.0 Monocytes % 9.1 Eosinophils % 2.1 Basophils % 0.2 Nucleated Red Blood 0.0 Cells % Immature 0.040 H Granulocytes # Neutrophils # 5.5 Lymphocytes # 1.6 Monocytes # 0.7 Eosinophils # 0.2 Basophils # 0.0 Nucleated Red Blood 0.0 Cells # Sodium Level 138 Potassium Level 4.4 Chloride Level 106 Carbon Dioxide Level 26 Anion Gap 6 Blood Urea Nitrogen 23 H Creatinine 1.14 H Est Glomerular Filtrat Rate mL/min Glucose Level 111 Hemoglobin A1c 5.8 Calcium Level 8.6 Total Bilirubin 0.7 Direct Bilirubin 0.00 Indirect Bilirubin 0.7 Aspartate Amino 19 Transf (AST/SGOT) Alanine 14 Aminotransferase (AL T/SGPT) Alkaline Phosphatase 51 Total Protein 6.4 Albumin 3.6 Globulin 2.80 Albumin/Globulin 1.28 Ratio Triglycerides Level 135 Cholesterol Level 127 LDL Cholesterol, 60 Calculated HDL Cholesterol 40 Cholesterol/HDL 3.1 Ratio Thyroid Stimulating 3.190 Hormone (TSH) Test 02/06/19 13:01 Bedside Glucose 94 Subjective 24 Hr Interval Summary Musculoskeletal: bone/joint pain Exam/Review of Systems Exam Vitals Vital Signs Date Temp Pulse Resp B/P (MAP) Pulse Ox O2 O2 Flow FiO2 Time Delivery Rate 02/06/19 98.3 83 18 119/57 98 Room Air 14:52 (77) Intake and Output 02/05/19 02/05/19 02/06/19 1515:00 23:00 07:00 IntakeIntake Total 680 ml 320 ml 1760 ml BalanceBalance 680 ml 320 ml 1760 ml Constitutional: alert, oriented Respiratory: clear to auscultation Cardiovascular: regular rate and rhythm Gastrointestinal: soft; No distended Musculoskeletal: nl extremities to inspection Results Results 24hrs Laboratory Tests Test 02/05/19 17:38 02/05/19 20:05 02/06/19 04:39 02/06/19 08:32 Bedside Glucose 116 92 104 White Blood Count 8.0 # Red Blood Count 3.47 L Hemoglobin 10.0 L Hematocrit 32.8 L Mean Corpuscular 94.5 Volume Mean Corpuscular 28.8 L Hemoglobin Mean Corpuscular 30.5 L Hemoglobin Concent Red Cell 13.9 Distribution Width Platelet Count 195 Mean Platelet Volume 10.2 Immature 0.500 H Granulocytes % Neutrophils % 68.1 Lymphocytes % 20.0 Monocytes % 9.1 Eosinophils % 2.1 Basophils % 0.2 Nucleated Red Blood 0.0 Cells % Immature 0.040 H Granulocytes # Neutrophils # 5.5 Lymphocytes # 1.6 Monocytes # 0.7 Eosinophils # 0.2 Basophils # 0.0 Nucleated Red Blood 0.0 Cells # Sodium Level 138 Potassium Level 4.4 Chloride Level 106 Carbon Dioxide Level 26 Anion Gap 6 Blood Urea Nitrogen 23 H Creatinine 1.14 H Est Glomerular Filtrat Rate mL/min Glucose Level 111 Hemoglobin A1c 5.8 Calcium Level 8.6 Total Bilirubin 0.7 Direct Bilirubin 0.00 Indirect Bilirubin 0.7 Aspartate Amino 19 Transf (AST/SGOT) Alanine 14 Aminotransferase (AL T/SGPT) Alkaline Phosphatase 51 Total Protein 6.4 Albumin 3.6 Globulin 2.80 Albumin/Globulin 1.28 Ratio Triglycerides Level 135 Cholesterol Level 127 LDL Cholesterol, 60 Calculated HDL Cholesterol 40 Cholesterol/HDL 3.1 Ratio Thyroid Stimulating 3.190 Hormone (TSH) Test 02/06/19 13:01 Bedside Glucose 94 Medications Medication Current Medications Sodium Chloride 1,000 ml @ 80 mls/hr [id number] IV Last administered on 02/06/19at 11:56; Admin Dose 80 MLS/HR; Start 02/05/19 at 02:41 IV Flush (NS 3 ml) 3 ml PER PROTOCOL IV ; Start 02/05/19 at 03:00 Ondansetron HCl (Zofran Inj) 4 mg Q6H PRN IV NAUSEA/VOMITING; Start 02/05/19 at 03:00 Acetaminophen (Tylenol Tab) 650 mg Q6H PRN PO .PAIN 1-3 OR TEMP; Start 02/05/19 at 03:00 Docusate Sodium (Colace) 100 mg Q12H PRN PO .CONSTIPATION; Start 02/05/19 at 03:00 Bisacodyl (Dulcolax) 5 mg DAILY PRN PO .CONSTIPATION; Start 02/05/19 at 03:00 Miscellaneous Information 1 ea NOTE XX ; Start 02/05/19 at 05:00 Glucose (Glutose) 15 gm Q15M PRN PO DECREASED GLUCOSE; Start 02/05/19 at 05:00 Glucose (Glutose) 22.5 gm Q15M PRN PO DECREASED GLUCOSE; Start 02/05/19 at 05:00 Dextrose (D50w Syringe) 25 ml Q15M PRN IV DECREASED GLUCOSE; Start 02/05/19 at 05:00 Dextrose (D50w Syringe) 50 ml Q15M PRN IV DECREASED GLUCOSE; Start 02/05/19 at 05:00 Glucagon (Glucagen) 1 mg Q15M PRN IM DECREASED GLUCOSE; Start 02/05/19 at 05:00 Glucose (Glutose) 15 gm Q15M PRN BUCCAL DECREASED GLUCOSE; Start 02/05/19 at 05:00 Diagnostic Test (Pha) (Accu-Chek) 1 ea 02 XX ; Start 02/06/19 at 02:00 Insulin Aspart (Novolog Insulin Pen) NOVOLOG *MILD* ALGORITHM WITH MEALS BEDTIME SC ; Start 02/05/19 at 17:55 Acetaminophen/ Hydrocodone Bitart ([place] (5/325)) 1 tab Q4H PRN PO .MOD PAIN 4- 6 Last administered on 02/05/19at 23:18; Admin Dose 1 TAB; Start 02/05/19 at 18:0 0 Hydromorphone HCl (Dilaudid) 1.5 mg Q3H PRN IV SEVERE PAIN LEVEL 7-10 Last administered on 02/06/19at 14:48; Admin Dose 1.5 MG; Start 02/06/19 at 08:30 KATELYN CALDWELL Feb 06, 2019 17:36
[2019-02-06 20:22] VITALS: BP 109/55; PULSE 86; RESP 19
[2019-02-06] MEDS: HYDROCODONE/APAP (5/325) TAB PO PRN (21:05)
[2019-02-07] MEDS: ACCU-CHEK XX SCH (01:16)
[2019-02-07] MEDS: SOD CHLORIDE 0.9% 1,000 ML IV SCH ×2 (01:33→14:06)
[2019-02-07 02:17] VITALS: BP 101/55; PULSE 54; RESP 19
[2019-02-07] MEDS: HYDROmorphONE 2 MG/ML SYG IV PRN ×5 (05:28→23:12)
--- NOTE | 2019-02-07 06:49 | CONS ---
Consult Date/Type/Reason Admit Date/Time Feb 05, 2019 at 02:38 Initial Consult Date 02/05/19 Type of Consultation: cv Requesting Provider: SYLVIE ARMAS Date/Time of Note DATE: 02/07/19 TIME: 06:48 Subjective Interventional cardiology follow-up progress note Subjective Discussed with the staff discussed with patient daughter. Patient with no chest pain or pressure no palpitation She is still complains of severe left-sided leg pain. PT awaiting higher level of care transfer Ejective: General: Appears to be in pain. HEENT: NC/AT. pupils are equal. round. NECK: NO JVD. no stridor. CV: RRR. systolic murmur; no gallop or rubs. PULM: no wheezing or rhonchi. GI: SOFT, NT, ND, no rebound or guarding Extremity: trace B/L LE edema. no clubbing. neuro: awake and alert, OX3. Psych: calm and pleasant rectal: deferred ECG NSR LAD ECHO reviewed Overall, normal left ventricular systolic function. Not all segments visualized. Normal left ventricular cavity size. Left ventricle not well visualized. Sigmoid septum. Ejection fraction is visually estimated at 65 %. Tissue Doppler/Mitral Doppler indices are consistent with impaired relaxation (Stage I diastolic dysfunction). Mild mitral leaflet calcification. Mild mitral annular calcification. No significant aortic stenosis or insufficiency. Aortic valve not well visualized. Aortic cusps appear mildly calcified. Normal appearance of the tricuspid valve. Unable to obtain RVSP due to minimal presence of tricuspid regurgitation. CXR No definite acute process seen within the chest. Mild cardiomegaly. Ectasia and atherosclerotic calcification of the aorta. Postsurgical change CT shows: Comminuted and displaced distal femoral periprosthetic fracture, as seen on earlier radiographs, with associated soft tissue swelling including inferiorly within the posterior compartment. Trimalleolar ankle fracture without associated dislocation. Dedicated radi ographs could be obtained for further assessment as clinically warranted. Nondisplaced fracture of the first proximal phalanx which extends to the MTP joint. Underlying osteopenia, and degenerative changes. Multifocal atherosclerotic calcifications. Objective Vitals Vital Signs Date Temp Pulse Resp B/P (MAP) Pulse Ox O2 O2 Flow FiO2 Time Delivery Rate 02/07/19 98.9 54 19 101/55 92 02:17 (70) 02/06/19 Room Air 14:52 Intake and Output 02/06/19 02/06/19 02/07/19 1515:00 23:00 07:00 IntakeIntake Total 500 ml 920 ml OutputOutput Total 300 ml BalanceBalance 200 ml 920 ml Results/Medications Result Diagram: 02/07/19 0500 02/07/19 0500 Results 24 hrs Laboratory Tests Test 02/06/19 08:32 02/06/19 13:01 02/06/19 17:44 02/06/19 20:15 Bedside Glucose 104 94 104 114 Test 02/07/19 05:00 White Blood Count 8.5 Red Blood Count 2.93 L Hemoglobin 8.6 L Hematocrit 27.6 L Mean Corpuscular 94.2 Volume Mean Corpuscular 29.4 Hemoglobin Mean Corpuscular 31.2 L Hemoglobin Concent Red Cell 13.7 Distribution Width Platelet Count 178 Mean Platelet Volume 10.2 Immature 0.400 Granulocytes % Neutrophils % 66.6 Lymphocytes % 18.4 Monocytes % 11.2 H Eosinophils % 3.2 Basophils % 0.2 Nucleated Red Blood 0.0 Cells % Immature 0.030 Granulocytes # Neutrophils # 5.7 Lymphocytes # 1.6 Monocytes # 1.0 H Eosinophils # 0.3 Basophils # 0.0 Nucleated Red Blood 0.0 Cells # Sodium Level 143 Potassium Level 4.3 Chloride Level 105 Carbon Dioxide Level 27 Anion Gap 11 Blood Urea Nitrogen 18 Creatinine 1.01 H Est Glomerular Filtrat Rate mL/min Glucose Level 110 Calcium Level 8.2 L Total Bilirubin 0.5 Direct Bilirubin 0.00 Indirect Bilirubin 0.5 Aspartate Amino 18 Transf (AST/SGOT) Alanine 17 Aminotransferase (AL T/SGPT) Alkaline Phosphatase 48 Total Protein 6.1 Albumin 3.1 L Globulin 3.00 Albumin/Globulin 1.03 Ratio Home Meds Reported Medications Metformin Hcl* (Metformin Hcl*) 500 Mg Tablet, 500 MG PO WITH BREAKFAST DINNE, #60 TAB 02/05/19 Esomeprazole Mag Trihydrate (Nexium) 40 Mg Capsule.dr, 40 MG PO DAILY, #30 CAP 02/05/19 Nateglinide* (Nateglinide*) 60 Mg Tablet, 60 MG PO AC MEALS, TAB 02/05/19 Olmesartan Medoxomil (Benicar) 40 Mg Tablet, 40 MG PO DAILY, #30 TAB 02/05/19 Fluticasone/Umeclidin/Vilanter (Trelegy Ellipta 100-62.5-25) 1 Each Blst.w.dev, 1 EACH IH 02/05/19 Latanoprost (Latanoprost) 2.5 Ml Drops, 1 DROP BOTH EYES QHS, #1 BOTTLE 02/05/19 Brimonidine Tartrate* (Alphagan P*) 0.1%-15 Ml Opht Drops, 1 DROP BOTH EYES Q8, #1 EA 02/05/19 Medications Current Medications Sodium Chloride 1,000 ml @ 80 mls/hr [id number] IV Last administered on 02/07/19at 01:33; Admin Dose 80 MLS/HR; Start 02/05/19 at 02:41 IV Flush (NS 3 ml) 3 ml PER PROTOCOL IV ; Start 02/05/19 at 03:00 Ondansetron HCl (Zofran Inj) 4 mg Q6H PRN IV NAUSEA/VOMITING; Start 02/05/19 at 03:00 Acetaminophen (Tylenol Tab) 650 mg Q6H PRN PO .PAIN 1-3 OR TEMP; Start 02/05/19 at 03:00 Docusate Sodium (Colace) 100 mg Q12H PRN PO .CONSTIPATION; Start 02/05/19 at 03:00 Bisacodyl (Dulcolax) 5 mg DAILY PRN PO .CONSTIPATION; Start 02/05/19 at 03:00 Miscellaneous Information 1 ea NOTE XX ; Start 02/05/19 at 05:00 Glucose (Glutose) 15 gm Q15M PRN PO DECREASED GLUCOSE; Start 02/05/19 at 05:00 Glucose (Glutose) 22.5 gm Q15M PRN PO DECREASED GLUCOSE; Start 02/05/19 at 05:00 Dextrose (D50w Syringe) 25 ml Q15M PRN IV DECREASED GLUCOSE; Start 02/05/19 at 05:00 Dextrose (D50w Syringe) 50 ml Q15M PRN IV DECREASED GLUCOSE; Start 02/05/19 at 05:00 Glucagon (Glucagen) 1 mg Q15M PRN IM DECREASED GLUCOSE; Start 02/05/19 at 05:00 Glucose (Glutose) 15 gm Q15M PRN BUCCAL DECREASED GLUCOSE; Start 02/05/19 at 05:00 Diagnostic Test (Pha) (Accu-Chek) 1 ea 02 XX ; Start 02/06/19 at 02:00 Insulin Aspart (Novolog Insulin Pen) NOVOLOG *MILD* ALGORITHM WITH MEALS BEDTIME SC ; Start 02/05/19 at 17:55 Acetaminophen/ Hydrocodone Bitart ([place] (5/325)) 1 tab Q4H PRN PO .MOD PAIN 4- 6 Last administered on 02/06/19at 21:05; Admin Dose 1 TAB; Start 02/05/19 at 18:00 Hydromorphone HCl (Dilaudid) 1.5 mg Q3H PRN IV SEVERE PAIN LEVEL 7-10 Last administered on 02/07/19at 05:28; Admin Dose 1.5 MG; Start 02/06/19 at 08:30 Assessment/Plan Hospital Course (Demo Recall) 1. Cardiovascular preop evaluation 2. Diabetes B. Femoral fraction 4. Hypertension 5. History of osteoarthritis Recommendations: Diabetic management as per internal medicine Blood pressure currently remains stable Patient is currently optimized from the cardiac extent with no anginal symptoms and no further cardiac work-up would be indicated. Given her multiple risk factors including diabetes and advanced and she will be a small to moderate risk of cardiovascular event for the proposed procedure however. Obviously if the aorta surgery appears to be more expensive than expected and longer cardiovascular risk will be increased as well. But no further cardiac work-up would be warranted or beneficial for this patient. Awaiting transfer to higher level of care per Ortho recommendation. DVT prophylaxis as per internal medicine. We will start the patient on Lovenox not he is she is not having a surgery today Thank you for this referral. We will continue to follow along with you PUMA THOMPSON MD [facility] PUMA THOMPSON MD Feb 07, 2019 06:49
[2019-02-07] MEDS ORDERED: ENOXAPARIN 40 MG/0.4 ML SYG SC ONE (07:00)
[2019-02-07] MEDS: INSULIN ASPART [NOVOLOG] 3 ML PEN SC SCH ×4 (07:50→20:59)
[2019-02-07 08:12] VITALS: BP 125/58; PULSE 77; RESP 18
[2019-02-07 15:02] VITALS: BP 132/82; PULSE 89; RESP 18
--- NOTE | 2019-02-07 15:15 | PN ---
Date/Time of Note Date/Time of Note DATE: 02/07/19 TIME: 15:14 Assessment/Plan VTE Prophylaxis Risk score (from Nsg)>0 risk: 5 SCD applied (from Nsg): Yes Pharmacological prophylaxis: LMWH Lines/Catheters IV Catheter Type (from Nrsg): Peripheral IV Urinary Cath still in place: No Assessment/Plan Hospital Course 1. Acute left distal femur fracture as well as ankle fracture secondary to fall CT of the lower extremity shows Comminuted and displaced distal femoral periprosthetic fracture, as seen on earlier radiographs, with associated soft tissue swelling including inferiorly within the posterior compartment. Trimalleolar ankle fracture without associated dislocation. Nondisplaced fracture of the first proximal phalanx which extends to the MTP joint. Pain control Ortho consult with Dr. Austin appreciated, patient requires higher level of care and disease case manager is making arrangements Cardiology consultation for preop evaluation appreciated 2. History of left knee replacement Surgery done over 10 years ago 3. Diabetes mellitus Sliding scale 4. Hypertension Hold home meds secondary to low to normal blood pressure 5. Hypothyroidism: Check TSH, will need to confirm patient's home levothyroxine dose 6. Morbid obesity Lifestyle changes DVT GI prophylaxis: Lovenox DC planning: Awaiting transfer Result Diagram: 02/07/19 0500 02/07/19 0500 Results 24hrs Laboratory Tests Test 02/06/19 17:44 02/06/19 20:15 02/07/19 05:00 02/07/19 08:38 Bedside Glucose 104 114 101 White Blood Count 8.5 Red Blood Count 2.93 L Hemoglobin 8.6 L Hematocrit 27.6 L Mean Corpuscular 94.2 Volume Mean Corpuscular 29.4 Hemoglobin Mean Corpuscular 31.2 L Hemoglobin Concent Red Cell 13.7 Distribution Width Platelet Count 178 Mean Platelet Volume 10.2 Immature 0.400 Granulocytes % Neutrophils % 66.6 Lymphocytes % 18.4 Monocytes % 11.2 H Eosinophils % 3.2 Basophils % 0.2 Nucleated Red Blood 0.0 Cells % Immature 0.030 Granulocytes # Neutrophils # 5.7 Lymphocytes # 1.6 Monocytes # 1.0 H Eosinophils # 0.3 Basophils # 0.0 Nucleated Red Blood 0.0 Cells # Sodium Level 143 Potassium Level 4.3 Chloride Level 105 Carbon Dioxide Level 27 Anion Gap 11 Blood Urea Nitrogen 18 Creatinine 1.01 H Est Glomerular Filtrat Rate mL/min Glucose Level 110 Calcium Level 8.2 L Total Bilirubin 0.5 Direct Bilirubin 0.00 Indirect Bilirubin 0.5 Aspartate Amino 18 Transf (AST/SGOT) Alanine 17 Aminotransferase (AL T/SGPT) Alkaline Phosphatase 48 Total Protein 6.1 Albumin 3.1 L Globulin 3.00 Albumin/Globulin 1.03 Ratio Test 02/07/19 12:37 Bedside Glucose 135 Subjective 24 Hr Interval Summary Constitutional: no complaints Exam/Review of Systems Exam Vitals Vital Signs Date Temp Pulse Resp B/P (MAP) Pulse Ox O2 O2 Flow FiO2 Time Delivery Rate 02/07/19 98.2 77 18 125/58 95 08:12 (80) 02/06/19 Room Air 14:52 Intake and Output 02/06/19 02/06/19 02/07/19 1515:00 23:00 07:00 IntakeIntake Total 500 ml 920 ml OutputOutput Total 300 ml BalanceBalance 200 ml 920 ml Constitutional: alert, oriented Respiratory: clear to auscultation Cardiovascular: regular rate and rhythm Gastrointestinal: soft; No distended Musculoskeletal: nl extremities to inspection Results Results 24hrs Laboratory Tests Test 02/06/19 17:44 02/06/19 20:15 02/07/19 05:00 02/07/19 08:38 Bedside Glucose 104 114 101 White Blood Count 8.5 Red Blood Count 2.93 L Hemoglobin 8.6 L Hematocrit 27.6 L Mean Corpuscular 94.2 Volume Mean Corpuscular 29.4 Hemoglobin Mean Corpuscular 31.2 L Hemoglobin Concent Red Cell 13.7 Distribution Width Platelet Count 178 Mean Platelet Volume 10.2 Immature 0.400 Granulocytes % Neutrophils % 66.6 Lymphocytes % 18.4 Monocytes % 11.2 H Eosinophils % 3.2 Basophils % 0.2 Nucleated Red Blood 0.0 Cells % Immature 0.030 Granulocytes # Neutrophils # 5.7 Lymphocytes # 1.6 Monocytes # 1.0 H Eosinophils # 0.3 Basophils # 0.0 Nucleated Red Blood 0.0 Cells # Sodium Level 143 Potassium Level 4.3 Chloride Level 105 Carbon Dioxide Level 27 Anion Gap 11 Blood Urea Nitrogen 18 Creatinine 1.01 H Est Glomerular Filtrat Rate mL/min Glucose Level 110 Calcium Level 8.2 L Total Bilirubin 0.5 Direct Bilirubin 0.00 Indirect Bilirubin 0.5 Aspartate Amino 18 Transf (AST/SGOT) Alanine 17 Aminotransferase (AL T/SGPT) Alkaline Phosphatase 48 Total Protein 6.1 Albumin 3.1 L Globulin 3.00 Albumin/Globulin 1.03 Ratio Test 02/07/19 12:37 Bedside Glucose 135 Medications Medication Current Medications Sodium Chloride 1,000 ml @ 80 mls/hr [id number] IV Last administered on 02/07/19at 14:06; Admin Dose 80 MLS/HR; Start 02/05/19 at 02:41 IV Flush (NS 3 ml) 3 ml PER PROTOCOL IV ; Start 02/05/19 at 03:00 Ondansetron HCl (Zofran Inj) 4 mg Q6H PRN IV NAUSEA/VOMITING; Start 02/05/19 at 03:00 Acetaminophen (Tylenol Tab) 650 mg Q6H PRN PO .PAIN 1-3 OR TEMP; Start 02/05/19 at 03:00 Docusate Sodium (Colace) 100 mg Q12H PRN PO .CONSTIPATION; Start 02/05/19 at 03:00 Bisacodyl (Dulcolax) 5 mg DAILY PRN PO .CONSTIPATION; Start 02/05/19 at 03:00 Miscellaneous Information 1 ea NOTE XX ; Start 02/05/19 at 05:00 Glucose (Glutose) 15 gm Q15M PRN PO DECREASED GLUCOSE; Start 02/05/19 at 05:00 Glucose (Glutose) 22.5 gm Q15M PRN PO DECREASED GLUCOSE; Start 02/05/19 at 05:00 Dextrose (D50w Syringe) 25 ml Q15M PRN IV DECREASED GLUCOSE; Start 02/05/19 at 05:00 Dextrose (D50w Syringe) 50 ml Q15M PRN IV DECREASED GLUCOSE; Start 02/05/19 at 05:00 Glucagon (Glucagen) 1 mg Q15M PRN IM DECREASED GLUCOSE; Start 02/05/19 at 05:00 Glucose (Glutose) 15 gm Q15M PRN BUCCAL DECREASED GLUCOSE; Start 02/05/19 at 05:00 Diagnostic Test (Pha) (Accu-Chek) 1 ea 02 XX ; Start 02/06/19 at 02:00 Insulin Aspart (Novolog Insulin Pen) NOVOLOG *MILD* ALGORITHM WITH MEALS BEDTIME SC ; Start 02/05/19 at 17:55 Acetaminophen/ Hydrocodone Bitart ([place] (5/325)) 1 tab Q4H PRN PO .MOD PAIN 4- 6 Last administered on 02/06/19at 21:05; Admin Dose 1 TAB; Start 02/05/19 at 18:00 Hydromorphone HCl (Dilaudid) 1.5 mg Q3H PRN IV SEVERE PAIN LEVEL 7-10 Last administered on 02/07/19 11:37; Admin Dose 1.5 MG; Start 02/06/19 at 08:30 KATELYN CALDWELL Feb 07, 2019 15:15
[2019-02-07 20:19] VITALS: BP 119/58; PULSE 88; RESP 20
[2019-02-08] MEDS: ACCU-CHEK XX SCH (01:14)
[2019-02-08 01:56] VITALS: BP 120/63; PULSE 120; RESP 20
[2019-02-08] MEDS: HYDROmorphONE 2 MG/ML SYG IV PRN ×4 (02:08→15:35)
[2019-02-08] MEDS: SOD CHLORIDE 0.9% 1,000 ML IV SCH (02:25)
[2019-02-08 07:30] VITALS: BP 117/60; PULSE 87; RESP 18
--- NOTE | 2019-02-08 07:48 | CONS ---
Consult Date/Type/Reason Admit Date/Time Feb 05, 2019 at 02:38 Initial Consult Date 02/05/19 Type of Consultation: cv Requesting Provider: SYLVIE ARMAS Date/Time of Note DATE: 02/08/19 TIME: 07:46 Subjective Interventional cardiology follow-up progress note Subjective Discussed with the staff discussed with patient daughter. Patient with no chest pain or pressure no palpitation She still complains of left-sided leg pain. but less severe this am PT awaiting higher level of care transfer Ejective: General: Appears to be in pain. HEENT: NC/AT. pupils are equal. round. NECK: NO JVD. no stridor. CV: RRR. systolic murmur; no gallop or rubs. PULM: no wheezing or rhonchi. GI: SOFT, NT, ND, no rebound or guarding Extremity: trace B/L LE edema. no clubbing. neuro: awake and alert, OX3. Psych: calm and pleasant rectal: deferred ECG NSR LAD ECHO reviewed Overall, normal left ventricular systolic function. Not all segments visualized. Normal left ventricular cavity size. Left ventricle not well visualized. Sigmoid septum. Ejection fraction is visually estimated at 65 %. Tissue Doppler/Mitral Doppler indices are consistent with impaired relaxation (Stage I diastolic dysfunction). Mild mitral leaflet calcification. Mild mitral annular calcification. No significant aortic stenosis or insufficiency. Aortic valve not well visualized. Aortic cusps appear mildly calcified. Normal appearance of the tricuspid valve. Unable to obtain RVSP due to minimal presence of tricuspid regurgitation. CXR No definite acute process seen within the chest. Mild cardiomegaly. Ectasia and atherosclerotic calcification of the aorta. Postsurgical change CT shows: Comminuted and displaced distal femoral periprosthetic fracture, as seen on earlier radiographs, with associated soft tissue swelling including inferiorly within the posterior compartment. Trimalleolar ankle fracture without associated dislocation. Dedicated radiographs could be obtained for further assessment as clinically warranted. Nondisplaced fracture of the first proximal phalanx which extends to the MTP joint. Underlying osteopenia, and degenerative changes. Multifocal atherosclerotic calcifications. Objective Vitals Vital Signs Date Temp Pulse Resp B/P (MAP) Pulse Ox O2 O2 Flow FiO2 Time Delivery Rate 02/08/19 97.8 87 18 117/60 92 Room Air 07:30 (79) Intake and Output 02/07/19 02/07/1919 1414:59 22:59 06:59 IntakeIntake Total 1860 ml 965 ml 1280 ml OutputOutput Total 300 ml BalanceBalance 1860 ml 665 ml 1280 ml Results/Medications Result Diagram: 02/08/19 0428 02/08/19 0428 Results 24 hrs Laboratory Tests Test 02/07/19 08:38 02/07/19 12:37 02/07/19 17:45 02/07/19 20:58 Bedside Glucose 101 135 97 103 Test 02/08/19 04:28 White Blood Count 8.9 Red Blood Count 2.89 L Hemoglobin 8.6 L Hematocrit 27.1 L Mean Corpuscular 93.8 Volume Mean Corpuscular 29.8 Hemoglobin Mean Corpuscular 31.7 L Hemoglobin Concent Red Cell 13.4 Distribution Width Platelet Count 189 Mean Platelet Volume 10.6 H Immature 0.600 H Granulocytes % Neutrophils % 74.9 Lymphocytes % 13.0 L Monocytes % 8.8 Eosinophils % 2.4 Basophils % 0.3 Nucleated Red Blood 0.0 Cells % Immature 0.050 H Granulocytes # Neutrophils # 6.7 Lymphocytes # 1.2 Monocytes # 0.8 Eosinophils # 0.2 Basophils # 0.0 Nucleated Red Blood 0.0 Cells # Sodium Level 139 Potassium Level 4.1 Chloride Level 105 Carbon Dioxide Level 24 Anion Gap 10 Blood Urea Nitrogen 14 Creatinine 0.98 Est Glomerular Filtrat Rate mL/min Glucose Level 99 Calcium Level 8.2 L Total Bilirubin 0.4 Direct Bilirubin 0.00 Indirect Bilirubin 0.4 Aspartate Amino 20 Transf (AST/SGOT) Alanine 20 Aminotransferase (AL T/SGPT) Alkaline Phosphatase 50 Total Protein 6.3 Albumin 3.1 L Globulin 3.20 Albumin/Globulin 0.96 Ratio Home Meds Reported Medications Metformin Hcl* (Metformin Hcl*) 500 Mg Tablet, 500 MG PO WITH BREAKFAST DINNE, #60 TAB 02/05/19 Esomeprazole Mag Trihydrate (Nexium) 40 Mg Capsule.dr, 40 MG PO DAILY, #30 CAP 02/05/19 Nateglinide* (Nateglinide*) 60 Mg Tablet, 60 MG PO AC MEALS, TAB 02/05/19 Olmesartan Medoxomil (Benicar) 40 Mg Tablet, 40 MG PO DAILY, #30 TAB 02/05/19 Fluticasone/Umeclidin/Vilanter (Trelegy Ellipta 100-62.5-25) 1 Each Blst.w.dev, 1 EACH IH 02/05/19 Latanoprost (Latanoprost) 2.5 Ml Drops, 1 DROP BOTH EYES QHS, #1 BOTTLE 02/05/19 Brimonidine Tartrate* (Alphagan P*) 0.1%-15 Ml Opht Drops, 1 DROP BOTH EYES Q8, #1 EA 02/05/19 Medications Current Medications IV Flush (NS 3 ml) 3 ml PER PROTOCOL IV ; Start 02/05/19 at 03:00 Ondansetron HCl (Zofran Inj) 4 mg Q6H PRN IV NAUSEA/VOMITING; Start 02/05/19 at 03:00 Acetaminophen (Tylenol Tab) 650 mg Q6H PRN PO .PAIN 1-3 OR TEMP; Start 02/05/19 at 03:00 Docusate Sodium (Colace) 100 mg Q12H PRN PO .CONSTIPATION; Start 02/05/19 at 03:00 Bisacodyl (Dulcolax) 5 mg DAILY PRN PO .CONSTIPATION; Start 02/05/19 at 03:00 Miscellaneous Information 1 ea NOTE XX ; Start 02/05/19 at 05:00 Glucose (Glutose) 15 gm Q15M PRN PO DECREASED GLUCOSE; Start 02/05/19 at 05:00 Glucose (Glutose) 22.5 gm Q15M PRN PO DECREASED GLUCOSE; Start 02/05/19 at 05:00 Dextrose (D50w Syringe) 25 ml Q15M PRN IV DECREASED GLUCOSE; Start 02/05/19 at 05:00 Dextrose (D50w Syringe) 50 ml Q15M PRN IV DECREASED GLUCOSE; Start 02/05/19 at 05:00 Glucagon (Glucagen) 1 mg Q15M PRN IM DECREASED GLUCOSE; Start 02/05/19 at 05:00 Glucose (Glutose) 15 gm Q15M PRN BUCCAL DECREASED GLUCOSE; Start 02/05/19 at 05:00 Diagnostic Test (Pha) (Accu-Chek) 1 ea 02 XX ; Start 02/06/19 at 02:00 Insulin Aspart (Novolog Insulin Pen) NOVOLOG *MILD* ALGORITHM WITH MEALS BEDTIME SC ; Start 02/05/19 at 17:55 Acetaminophen/ Hydrocodone Bitart ([place] (5/325)) 1 tab Q4H PRN PO .MOD PAIN 4- 6 Last administered on 02/06/19at 21:05; Admin Dose 1 TAB; Start 02/05/19 at 18:00 Hydromorphone HCl (Dilaudid) 1.5 mg Q3H PRN IV SEVERE PAIN LEVEL 7-10 Last administered on 02/08/19at 02:08; Admin Dose 1.5 MG; Start 02/06/19 at 08:30 Enoxaparin Sodium (Lovenox) 40 mg DAILY SC ; Start 02/08/19 at 09:00 Assessment/Plan Hospital Course (Demo Recall) 1. Cardiovascular preop evaluation 2. Diabetes B. Femoral fraction 4. Hypertension 5. History of osteoarthritis Recommendations: Diabetic management as per internal medicine Blood pressure currently remains stable Patient is currently optimized from the cardiac extent with no anginal symptoms and no further cardiac work-up would be indicated. Given her multiple risk factors including diabetes and advanced and she will be a small to moderate risk of cardiovascular event for the proposed procedure however. Obviously if the aorta surgery appears to be more expensive than expected and longer cardiovascular risk will be increased as well. But no further cardiac work-up would be warranted or beneficial for this patient. Awaiting transfer to higher level of care per Ortho recommendation. DVT prophylaxis as per internal medicine. on lovenox now Thank you for this referral. We will continue to follow along with you PUMA THOMPSON MD [facility] PUMA THOMPSON MD Feb 08, 2019 07:48
[2019-02-08] MEDS: INSULIN ASPART [NOVOLOG] 3 ML PEN SC SCH ×2 (07:50→12:30)
[2019-02-08] MEDS ORDERED: ENOXAPARIN 40 MG/0.4 ML SYG SC SCH (09:00)
[2019-02-08] MEDS: HYDROCODONE/APAP (5/325) TAB PO PRN (14:06)
--- NOTE | 2019-02-08 15:09 | DS ---
Date/Time of Note Date/Time of Note DATE: 02/08/19 TIME: 15:06 Discharge Summary Admission/Discharge Info Admit Date/Time Feb 05, 2019 at 02:38 Discharge Date/Time February 08, 2019 Discharge Diagnosis 1. Acute left distal femur fracture as well as ankle fracture secondary to fall CT of the lower extremity shows Comminuted and displaced distal femoral periprosthetic fracture, as seen on earlier radiographs, with associated soft tissue swelling including inferiorly within the posterior compartment. Trimalleolar ankle fracture without associated dislocation. Nondisplaced fracture of the first proximal phalanx which extends to the MTP joint. Pain control Ortho consult with Dr. Austin appreciated, patient requires higher level of care and case loader operator is making arrangements Cardiology consultation for preop evaluation appreciated 2. History of left knee replacement Surgery done over 10 years ago 3. Diabetes mellitus Sliding scale 4. Hypertension Hold home meds secondary to low to normal blood pressure 5. Hypothyroidism TSH within range Continue home Synthroid 6. Morbid obesity Lifestyle changes Patient Condition: Fair Hospital Course Patient is a 83-year-old female history of morbid obesity with hypertension, diabetes as well as history of left knee replacement over 10 years ago. Patient presents with acute left distal femur fracture as well as ankle fracture secondary to fall. Patient was seen by Ortho and due to nature of fracture as noted on CT, recommendation was for transfer to higher level of care. Patient did require heavy doses of Dilaudid for pain control, patient was stable for transfer on the day of discharge patient's vitals, labs and physical exam are stable. Home Meds Reported Medications Metformin Hcl* (Metformin Hcl*) 500 Mg Tablet, 500 MG PO WITH BREAKFAST DINNE, #60 TAB 02/05/19 Esomeprazole Mag Trihydrate (Nexium) 40 Mg Capsule.dr, 40 MG PO DAILY, #30 CAP 02/05/19 Nateglinide* (Nateglinide*) 60 Mg Tablet, 60 MG PO AC MEALS, TAB 02/05/19 Olmesartan Medoxomil (Benicar) 40 Mg Tablet, 40 MG PO DAILY, #30 TAB 02/05/19 Fluticasone/Umeclidin/Vilanter (Trelegy Ellipta 100-62.5-25) 1 Each Blst.w.dev, 1 EACH IH 02/05/19 Latanoprost (Latanoprost) 2.5 Ml Drops, 1 DROP BOTH EYES QHS, #1 BOTTLE 02/05/19 Brimonidine Tartrate* (Alphagan P*) 0.1%-15 Ml Opht Drops, 1 DROP BOTH EYES Q8, #1 EA 02/05/19 Follow-up Plan Follow-up with physicians at [facility] Primary Care Provider Care Physician No Primary Time spent on discharge: > 30 minutes KATELYN CALDWELL Feb 08, 2019 15:09
== END 2019-02-08 15:42 | disposition short-term general hospital (02) | DRG 560 ==
LOC: E/R 01:46 → MS1 02:38
PROVIDERS: ADMIT Family Medicine; ATTEND Internal Medicine
DX: M97.12XA Periprosthetic fracture around internal prosthetic left knee joint, initial encounter (principal); S72.402A Unspecified fracture of lower end of left femur, initial encounter for closed fracture; T84.033A Mechanical loosening of internal left knee prosthetic joint, initial encounter; S82.852A Displaced trimalleolar fracture of left lower leg, initial encounter for closed fracture; S92.412A Displaced fracture of proximal phalanx of left great toe, initial encounter for closed fracture; W01.0XXA Fall on same level from slipping, tripping and stumbling without subsequent striking against object, initial encounter; E11.9 Type 2 diabetes mellitus without complications; I10 Essential (primary) hypertension; Z85.3 Personal history of malignant neoplasm of breast; E03.9 Hypothyroidism, unspecified; E66.9 Obesity, unspecified; Z68.35 Body mass index [BMI] 35.0-35.9, adult
CPT/HCPCS: 36415; 71045; 72192; 73510; 73562; 73700; 80053; 80061; 82306; 82962; 83036; 83690; 84443; 85025; 85610; 85730; 93005; 93306; 96374; 96375; J1170; J1650; J1815; J2270; J2405; J7030